=== PATIENT | female | born 1995 | race Caucasian/White ===

== ENCOUNTER 2019-03-10 19:52 | Emergency (ER) | payer MEDICAID ==
[~2019-03-10] VITALS: Ht 170.2 cm; Wt 61.2 kg
[2019-03-10 20:02] VITALS: BP 121/70
--- NOTE | 2019-03-10 20:05 | NUR ---
NASAL SWAB FOR INFLUENZA SENT TO LAB
--- NOTE | 2019-03-10 20:05 | NUR ---
TO LOBBY A/W BED AMBULATORY
--- NOTE | 2019-03-10 21:32 | NUR ---
PT TAKEN TO BED 2
--- NOTE | 2019-03-10 21:33 | NUR ---
Dr. Wiggins examining patient.
--- NOTE | 2019-03-10 21:35 | NUR ---
23 Y/O FEMALE PRESENTS TO ED, C/O COUGH X1 WEEK. COUGH IS NONPRODUCTIVE. STATES HAVING DIFFICULTY BREATHING DUE TO COUGH. LUNG SOUNDS BILAT CLEAR. DENIES ANY CHEST PAIN. NO MEDICATIONS TAKEN PRIOR COMING TO ED. PT VSS. ERMD AWARE. WILL CONTINUE TO MONITOR.
--- NOTE | 2019-03-10 21:41 | NUR ---
PT DISCHARGED WITH PAPERWORK. EDUCATED PT REGARDING MEDICATIONS AND D/C INSTRUCTIONS. PT VERBALIZED UNDERSTANDING OF TEACHING. TOLD PT TO FOLLOW UP WITH PCP AND WHEN TO RETURN TO ED. PT STABLE CONDITION. ALL QUESTIONS ANSWERED.
== END 2019-03-10 21:41 | disposition home or self-care (01) ==
LOC: MED 19:52
DX: J20.9 Acute bronchitis, unspecified (principal)
CPT/HCPCS: 87804; 99283